=== PATIENT | male | born 1990 | race Caucasian/White ===

== ENCOUNTER 2016-10-04 19:23 | Emergency (ER) | payer OTHER ==
[~2016-10-04] VITALS: Ht 188 cm; Wt 100.0 kg
[2016-10-04 19:32] VITALS: BP 151/89
[2016-10-04] MEDS ORDERED: PENICILLIN G BENZATHINE 1,200,000 UNITS/2ML SYR IM ONE (21:45)
== END 2016-10-04 22:20 | disposition home or self-care (01) ==
LOC: ER 19:24
DX: J02.0 Streptococcal pharyngitis (principal); Z98.890 Other specified postprocedural states
CPT/HCPCS: 96372; 99283; J0561